=== PATIENT | male | born 1980 | race Two or more races ===

== ENCOUNTER 2020-08-29 04:34 | Emergency (ER) | payer OTHER ==
[~2020-08-29] VITALS: Ht 185.4 cm; Wt 140.1 kg
[2020-08-29] MEDS ORDERED: normal saline 1000ML IV soln IVB ONE (04:55)
[2020-08-29] MEDS ORDERED: vancomycin/NS 1 GM ADD-VANTAGE 250 ML IV ONE (05:15)
[2020-08-29] MEDS ORDERED: TETanus/Pertussis (Acell)/Diphther VAC/PF (Tdap-Adult) 0.5ml syringe IMVAC ONE (05:15)
[2020-08-29] MEDS ORDERED: LIDOcaine 1% W/epiNEPHrine 1:200,000 10ml vial IJ ONE (05:15)
[2020-08-29] MEDS ORDERED: LIDOcaine 1% W/epiNEPHrine 1:100,000 20ml vial IJ ONE (05:20)
[2020-08-29 05:27] LABS: BASOPHILS % (AUTO) 0.3 % (0-1); EOSINOPHILS # (AUTO) 0.1 X10'3 (0-0.9); EOSINOPHILS % (AUTO) 0.7 % (0-6); HEMATOCRIT 39.5 % (42.0-52.0); HEMOGLOBIN 12.9 g/dl (14.0-17.9); LYMPHOCYTES # (AUTO) 1.7 X10'3 (1.1-4.8); LYMPHOCYTES % (AUTO) 10.5 % (21-51); MEAN CORPUSCULAR HEMOGLOBIN 28.7 PG (27.0-31.0); MEAN CORPUSCULAR HGB CONC 32.8 g/dL (33.0-36.5); MEAN CORPUSCULAR VOLUME 87.6 FL (78-98); MEAN PLATELET VOLUME 6.8 FL (7.4-10.4); MONOCYTES # (AUTO) 2.1 X10'3 (0-0.9); MONOCYTES % (AUTO) 12.6 % (2-12); NEUTROPHILS # (AUTO) 12.4 X10'3 (1.8-7.7); NEUTROPHILS % (AUTO) 75.9 % (42-75); PLATELET COUNT 332 X10'3 (140-440); RED BLOOD COUNT 4.51 X10'6 (4.70-6.10); RED CELL DISTRIBUTION WIDTH 13.2 % (11.5-14.5); WHITE BLOOD COUNT 16.3 X10'3 (4.5-11.0)
[2020-08-29 05:38] LABS: GLUCOSE 110 MG/DL (70-104); SODIUM 138 MMOL/L (135-145)
[2020-08-29 05:39] LABS: ALANINE AMINOTRANSFERASE 22 U/L (12-78); ALBUMIN 3.2 G/DL (3.4-5.0); ALBUMIN/GLOBULIN RATIO 0.6 (1.1-1.5); ALKALINE PHOSPHATASE 89 IU/L (46-116); ANION GAP 9 (8-16); ASPARTATE AMINO TRANSFERASE 19 U/L (10-37); BILIRUBIN,TOTAL 0.4 MG/DL (0.1-1.0); BLOOD UREA NITROGEN 14 MG/DL (7-18); CALCIUM 9.1 MG/DL (8.5-10.1); CHLORIDE 100 MMOL/L (99-107); CREATININE 1.08 MG/DL (0.60-1.10); POTASSIUM 3.8 MMOL/L (3.5-5.1); TOTAL PROTEIN 8.2 G/DL (6.4-8.2); eGFR 75 ML/MIN
[2020-08-29] MEDS ORDERED: CLIN-97 PO (06:25)
[2020-08-29 06:55] LABS: TOTAL CELLS COUNTED 100
[2020-08-29 06:56] LABS: PLATELET ESTIMATE NORMAL
[2020-08-29 07:14] VITALS: BP 148/74
== END 2020-08-29 07:21 | disposition left against medical advice (07) ==
LOC: ER 04:36
DX: L02.11 Cutaneous abscess of neck (principal); L03.221 Cellulitis of neck; F12.90 Cannabis use, unspecified, uncomplicated; Z79.899 Other long term (current) drug therapy
CPT/HCPCS: 10060; 36415; 80053; 83605; 85007; 85025; 87040; 87070; 87077; 87186; 90471; 90715; 96365; 96366; 99284; J3370; J7030